=== PATIENT | male | born 1940 | race Caucasian/White ===

== ENCOUNTER 2017-04-25 08:59 | Emergency (ER) | payer OTHER ==
[~2017-04-25] VITALS: Ht 172.7 cm; Wt 74.8 kg
[~2017-04-25 08:59] MED LIST: FINASTERIDE5 MG PO; TAMSULOSIN HCL0.4 MG PO
[2017-04-25 09:30] LABS: URINE COLOR RED
[2017-04-25 09:35] LABS: URINE BILIRUBIN NEGATIVE (Negative); URINE BLOOD 3+ (Negative); URINE CLARITY TURBID; URINE GLUCOSE-RANDOM NEGATIVE (Negative); URINE KETONES TRACE (Negative); URINE LEUKOCYTES-REFLEX NEGATIVE (Negative); URINE NITRITE-REFLEX NEGATIVE (Negative); URINE PROTEIN 1+ (Negative); URINE SPECIFIC GRAVITY 1.015 (1.005-1.030); URINE UROBILINOGEN 0.2 E.U./dl (0.2-1.0)
[2017-04-25] MEDS ORDERED: UNICOMPLEX M TA1 TA1 PO (09:35)
[2017-04-25 09:38] LABS: CASTS None Seen /LPF (None Seen); CRYSTALS None Seen /LPF (None Seen); SQUAMOUS NONE SEEN /LPF (0-3)
[2017-04-25 09:39] LABS: BACTERIA-REFLEX 1-9 Few /HPF (None Seen); URINE RBC >20 Many /HPF (0-2); URINE WBC-REFLEX None Seen /HPF (0-5)
[2017-04-25 09:54] LABS: INFLUENZA A ANTIGEN None Detected (None Detect); INFLUENZA B ANTIGEN None Detected (None Detect)
[2017-04-25 10:46] LABS: ABSOLUTE BASOPHILS 0.1 thou/uL (0.0-0.2); ABSOLUTE EOSINOPHILS 0.1 thou/uL (0.0-0.7); ABSOLUTE LYMPHOCYTES 2.5 thou/uL (0.8-5.3); ABSOLUTE MONOCYTES 0.9 thou/uL (0.0-1.2); ABSOLUTE NEUTROPHILS 9.5 thou/uL (1.6-8.1); BASOPHILS 0.9 %; EOSINOPHILS 0.6 %; HEMATOCRIT 44.6 % (42.0-52.0); HEMOGLOBIN 14.6 gm/dL (14.0-18.0); LYMPHOCYTES 18.9 %; MCH 29.5 pg (26.0-34.0); MCHC 32.6 g/dL (28.0-37.0); MCV 90.5 fL (80.0-100.0); MPV 7.5 fl. (7.2-11.1); NUCLEATED RBCS 0 /100WBC; PLATELET COUNT* 334 thou/uL (150-400); POLYS 72.6 %; RBC 4.93 mil/uL (4.50-6.00); RDW-CV 14.8 % (10.5-14.5); WBC 13.1 thou/uL (4.0-11.0)
[2017-04-25 10:55] LABS: ANION GAP 7 mmol/L (7-16); BUN 12 mg/dL (7-18); CALCIUM 8.4 mg/dL (8.5-10.1); CHLORIDE 105 mmol/L (98-107); CO2 26 mmol/L (21-32); CREATININE 0.8 mg/dL (0.6-1.3); GLUCOSE 111 mg/dL (70-99); POTASSIUM 3.8 mmol/L (3.5-5.1); SODIUM 138 mmol/L (136-145)
[2017-04-25 10:58] LABS: ALBUMIN 3.3 g/dL (3.4-5.0); ALKALINE PHOSPHATASE 84 U/L (46-116); SGOT 13 U/L (15-37); SGPT 19 U/L (30-65); TOTAL BILIRUBIN 0.6 mg/dL (<0.1-1.0); TOTAL PROTEIN 6.5 g/dL (6.4-8.2); TROPONIN-I LEVEL <0.06 ng/mL (<0.06)
[2017-04-25] MEDS ORDERED: VALIUM5 MG PO (11:03)
[2017-04-25] MEDS ORDERED: ZOFRAN ODT4 MG PO (11:03)
[2017-04-25] MEDS ORDERED: BACTRIM DS TAB1 EACH PO (11:03)
[2017-04-25 11:28] VITALS: BP 114/57
--- NOTE | 2017-04-26 15:47 | EKG ---
[place] [address] ELECTROCARDIOGRAM REPORT Name: GENESIS CARTWRIGHT [id number] Admission: 04/25/17 Attend Phys: Discharge: 04/25/17 Date of : 44 Report #: [id number] THIS REPORT FOR: //name// [facility] ED Test Date: 2017-04-25 Test Time: 09:27:50 Pat Name: GENESIS CARTWRIGHT Department: Room: Gender: M Assistant Toddler Teacher: Hiram NANCE : 1940 Requested By: Xiang Oswald Order Number: [id number] MD: Ricardo Hudson Measurements Intervals [place] Rate: 64 P: 57 DC: 158 QRS: -34 QRSD: 90 T: -4 QT: 452 QTc: 467 Interpretive Statements Sinus rhythm Left axis deviation Borderline low voltage, extremity leads Compared to ECG 07/04/2011 16:06:37 Left-axis deviation now present Electronically Signed On 04-26-2017 15:47:19 FIELD SERVICE CONSULTANT by Ricardo Hudson [email or web address] <ELECTRONICALLY SIGNED> By: Ricardo Hudson MD, [facility] 04/26/17 1547 6 6 Ricardo Hudson MD, FAC /EPI
== END 2017-04-25 11:29 | disposition home or self-care (01) ==
LOC: M.ERS 08:59
PROVIDERS: Emergency Medicine Emergency Medical Services
DX: N39.0 Urinary tract infection, site not specified (principal); R31.9 Hematuria, unspecified; R42 Dizziness and giddiness; F17.210 Nicotine dependence, cigarettes, uncomplicated

== ENCOUNTER 2017-07-15 20:08 | Observation (INO) | payer OTHER ==
[~2017-07-15] VITALS: Ht 172.7 cm; Wt 78.9 kg
[~2017-07-15 20:08] MED LIST changes: +BACTRIM DS TAB1 EACH PO; +UNICOMPLEX M TA1 TA1 PO; +VALIUM5 MG PO; +ZOFRAN ODT4 MG PO
[2017-07-15 20:12] VITALS: BP 153/63
[2017-07-15 20:33] LABS: URINE BILIRUBIN NEGATIVE (Negative); URINE BLOOD 3+ (Negative); URINE CLARITY SL CLOUDY; URINE COLOR RED; URINE GLUCOSE-RANDOM NEGATIVE (Negative); URINE KETONES NEGATIVE (Negative); URINE LEUKOCYTES-REFLEX NEGATIVE (Negative); URINE NITRITE-REFLEX NEGATIVE (Negative); URINE PROTEIN 2+ (Negative); URINE SPECIFIC GRAVITY <= 1.005 (1.005-1.030); URINE UROBILINOGEN 0.2 E.U./dl (0.2-1.0)
[2017-07-15 20:36] LABS: BACTERIA-REFLEX 1-9 Few /HPF (None Seen); CASTS None Seen /LPF (None Seen); CRYSTALS None Seen /LPF (None Seen); MUCUS 0-3 Light strn/LPF (None Seen); SQUAMOUS 0-3 Few /LPF (0-3); URINE RBC >20 Many /HPF (0-2); URINE WBC-REFLEX 0-5 Rare /HPF (0-5)
[2017-07-15 20:42] LABS: ABSOLUTE BASOPHILS 0.1 thou/uL (0.0-0.2); ABSOLUTE EOSINOPHILS 0.7 thou/uL (0.0-0.7); ABSOLUTE LYMPHOCYTES 3.6 thou/uL (0.8-5.3); ABSOLUTE NEUTROPHILS 6.9 thou/uL (1.6-8.1); BASOPHILS 1.2 %; EOSINOPHILS 5.3 %; HEMATOCRIT 43.4 % (42.0-52.0); HEMOGLOBIN 14.6 gm/dL (14.0-18.0); LYMPHOCYTES 28.9 %; MCH 30.9 pg (26.0-34.0); MCHC 33.7 g/dL (28.0-37.0); MCV 91.6 fL (80.0-100.0); MONOCYTES 8.3 %; MPV 7.1 fl. (7.2-11.1); NUCLEATED RBCS 0 /100WBC; PLATELET COUNT* 302 thou/uL (150-400); POLYS 56.3 %; RBC 4.74 mil/uL (4.50-6.00); RDW-CV 14.8 % (10.5-14.5); WBC 12.3 thou/uL (4.0-11.0)
[2017-07-15 20:50] LABS: CALCIUM 8.7 mg/dL (8.5-10.1); POTASSIUM 4.2 mmol/L (3.5-5.1)
[2017-07-15 20:55] LABS: ALBUMIN 3.5 g/dL (3.4-5.0); TOTAL BILIRUBIN 0.7 mg/dL (<0.1-1.0)
[2017-07-15 23:04] VITALS: BP 158/90
[2017-07-15 23:05] VITALS: BP 132/60
--- NOTE | 2017-07-16 05:25 | NUR ---
PATIENT ARRIVED TO UNIT AT 2258 VIA CART FROM ER. ALERT AND ORIENTED X 4. VITALS STABLE. RA. ORIENTED TO ROOM AND STAFF. UP INDEPENDENTLY, GAIT STEADY. EDUCATED ABOUT FALL PREVENTION. BOX LUNCH PROVIDED. FLUIDS INFUSING PER ORDER. VOIDING ADEQUATELY PER URINAL, HEMATURIA NOTED. HOURLY ROUNDS. INSTRUCTED TO CALL FOR ASSISTANCE. NURSING WILL CONTINUE TO MONITOR.
[2017-07-16 08:23] VITALS: BP 138/75
[2017-07-16 13:45] VITALS: BP 138/75
[2017-07-16] MEDS ORDERED: PROSCAR 5MG TABL5 MG PO (13:51)
--- NOTE | 2017-07-16 14:08 | NUR ---
ASSUMED CARE OF PATIENT AFTER MORNING REPORT. ALERT AND ORIENTED X4. ASSESSMENT COMPLETED AND CHARTED. VSS ON ROOM AIR. PATIENT HAS HAD NO COMPLAINTS OF PAIN, NAUSEA, OR SOA THIS SHIFT. FLUIDS INFUSED ORDERED. URINE MONITORED AND MEASURED WITH GOOD OUTPUT. BLADDER SCAN DOES SHOW SOME RETENTION POST VOID. UROLOGY CONSULTED AND AGREED FOR PATIENT TO FOLLOW UP WITH HIS UROLOGIST ON THE 14TH OF THIS MONTH. RECORDS OF THIS VISIT WERE FAXED OVER TO HIS UROOLOGISTS OFFICE AND A REQUEST WAS PLACED TO ADD A CYSTOSCOPY TO HIS FOLLOW UP. PATIENT DISCHARGED AT 1400, ALL PERSONAL BELONGINGS AND DISCHARGE INFORMATION SENT WITH PATIENT AND PRESCRIPTION CALLED IN TO THE PHARMACY.
== END 2017-07-16 14:05 | disposition home or self-care (01) ==
LOC: M.ERS 20:08 → M.ORTHSURG 22:09 → M.TBA-ER 22:09 → M.ORTHSURG 22:09
PROVIDERS: Nurse Practitioner; ADMIT Internal Medicine
DX: R31.0 Gross hematuria (principal); N40.0 Benign prostatic hyperplasia without lower urinary tract symptoms; Z90.79 Acquired absence of other genital organ(s); Z87.891 Personal history of nicotine dependence; Z98.890 Other specified postprocedural states